=== PATIENT | male | born 1965 | race Caucasian/White ===

== ENCOUNTER 2022-12-07 18:41 | Emergency (ER) | payer SELFPAY ==
[2022-12-07 18:46] VITALS: BP 170/100; PULSE 103; RESP 20; TEMP 36.6; O2SAT 97; BMI 27.9
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
[2022-12-07] MEDS: HYDROcodone-acetaminophen 5-325 mg Tablet 1 TAB PO (19:03)
[2022-12-07] MEDS: oxymetazoline 0.05% Nasal Spray 15 mL 2 SPRAY NOSTRIL-B (19:03)
[2022-12-07 19:30] VITALS: BP 173/103; PULSE 75; RESP 18; O2SAT 95
[2022-12-07 20:37] VITALS: BP 159/107; PULSE 76; RESP 18; O2SAT 95
== END 2022-12-07 20:39 | disposition home or self-care (01) ==
PROVIDERS: Emergency Provider Nurse Practitioner Family
DX: S02.2XXA Fracture of nasal bones, initial encounter for closed fracture (principal); Y04.2XXA Assault by strike against or bumped into by another person, initial encounter; Y92.143 Cell of prison as the place of occurrence of the external cause; S01.112A Laceration without foreign body of left eyelid and periocular area, initial encounter
CPT/HCPCS: 12011; 30905; 70450; 99284